=== PATIENT | female | born 1950 | race Caucasian/White ===

== ENCOUNTER 2022-01-29 22:24 | Inpatient (IN) ==
[2022-01-29] MEDS ORDERED: IOPAMIDOL 100 ML BOTTLE IV ONE (22:25)
--- NOTE | 2022-01-29 22:34 | Emergency Department Note ---
HPI General Chief complaint: Cold/Flu Symptoms Stated complaint: cold/flu symptoms Time Seen by Provider: 01/29/22 22:34 Source: EMS Mode of arrival: EMS Limitations: no limitations History of Present Illness HPI Narrative: Narrative:71-year-old female history of schizophrenia, type 2 diabetes, hyperlipidemia, hypothyroid presents to ED with 1 day of fever and several days of progressive worsening cough. Mild dyspnea. No chest pain. Has had COVID vaccinations. No abdominal pain or GI symptoms. Does occasionally hear voices she says but that is chronic and her baseline according to family. No other acute complaints. Denies chronic lung disease Related Data Home Medications Medication Instructions Recorded Confirmed quetiapine 100 mg tablet 200 mg PO HS 09/23/15 09/23/15 s-adenosylmethionine 200 mg tablet 200 mg PO DAILY 09/23/15 09/23/15 (Carmelo-E) Geodon 160 mg PO 09/05/20 aspirin 81 mg chewable tablet 81 mg PO DAILY 09/05/20 09/05/20 calcium carbonate 600 mg calcium PO 09/05/20 (1,500 mg) tablet (Calcium) clotrimazole 1 % topical cream TOPICAL 09/05/20 (Lotrimin AF (clotrimazole)) hydrocortisone 2.5 % topical cream 1 applic TOPICAL BID PRN 09/05/20 09/05/20 levothyroxine 88 mcg capsule 88 mcg PO DAILY 09/05/20 01/30/22 loperamide 2 mg tablet 2 mg PO PRN PRN 09/05/20 01/30/22 montelukast 10 mg tablet 10 mg PO DAILY 09/05/20 09/05/20 (Singulair) nitrofurantoin macrocrystal 100 mg 100 mg PO BID 09/05/20 09/05/20 capsule olanzapine 5 mg tablet 5 mg PO Q1HP PRN 09/05/20 01/30/22 trazodone 50 mg tablet 50 mg PO PRN PRN 09/05/20 09/05/20 divalproex 250 mg tablet,extended 1 tab PO QDAY 01/30/22 01/30/22 release 24 hr sertraline 50 mg tablet 1 tab PO QDAY 01/30/22 01/30/22 Previous Rx's Medication Instructions Recorded nitrofurantoin 100 mg PO BID #14 cap 02/15/21 monohydrate/macrocrystals 100 mg capsule (Macrobid) Allergies Allergy/AdvReac Type Severity Reaction Status Date / Time No Known Drug Allergies Allergy Verified 10/08/21 18:38 Review of Systems ROS ROS Narrative: Narrative:At least 10 systems reviewed and otherwise acutely negative except as in the HPI PFSH Narrative Patient History Narrative: Narrative: Medical/Surgical/Family History All Active Problems (Updated 01/30/22 @ 04:18 by Brandon Dowd DO) Suicidal ideation (Acute) Schizo affective schizophrenia (Acute) Chronic confusion (Acute) Asymptomatic microscopic hematuria (Acute) Acute UTI (Acute) Acute UTI (Acute) Contusion of hip (Acute) Pneumonia (Acute) Sepsis (Acute) Hypoxia (Acute) Chronic diarrhea (Acute) Hypertriglyceridemia (Acute) Hypothyroidism (Acute) Type 2 diabetes mellitus (Acute) Schizoaffective disorder (Acute) Gastroenteritis (Acute) Medical History (Updated 01/30/22 @ 04:18 by Brandon Dowd DO) Chronic diarrhea Gastroenteritis History of breast cancer Hypertriglyceridemia Hypothyroidism Schizoaffective disorder Type 2 diabetes mellitus Surgical History History of bilateral mastectomy Social History Smoking Status: Never smoker Exam Narrative Narrative: Narrative: Constitutional: normally developed, ill-appearing Head: Normocephalic, atraumatic, Eyes: No Icterus, ENT: Moist mucus membranes, Neck: Supple, Cardiac: Mildly tachycardic heart sounds, palpable radial pulses, no peripheral edema Pulmonary: A bit tachypneic mildly hypoxic on room air in the mid 80s, stable on 2 L nasal cannula coarse breath sounds sporadic crackle and cough Gastrointestinal: Abdomen soft, non-distended, non-tender, Musculoskeletal: No gross deformities, well perfused Skin: warm, dry Neuro: Alert and oriented. General Limitations: no limitations Course Vital Signs Vital signs: Vital Signs Temperature 38.1 C H 01/29/22 22:25 Pulse Rate 114 H 01/29/22 22:25 Respiratory Rate 28 H 01/29/22 22:25 Blood Pressure 156/69 01/29/22 22:25 Pulse Oximetry (%) 91 01/29/22 22:25 Temperature 37.0 C 01/30/22 03:18 Pulse Rate 72 01/30/22 04:01 Respiratory Rate 17 01/30/22 03:18 Blood Pressure 112/54 01/30/22 04:01 Pulse Oximetry (%) 97 01/30/22 04:01 [facility] MDM Narrative Medical decision making narrative: Narrative: Patient with fever, cough she is febrile mildly tachycardic and hypoxic requiring oxygen septic work-up initiated is started on Rocephin azithromycin. Her rapid Covid and flu are negative we will send panther as suspicion is still high Twelve-lead EKG sinus tachycardia 102 [place], QRS, QTc within normal, and some nonspecific T wave flattening no ST segment changes CBC White count of 18.7 Lactic acid 2.6, electrolytes with a mild hypokalemia 3.0 Given the elevated lactic acid we have ordered additional fluids to complete 30 cc/kg bolus and will repeat lactic. Patient has already received antibiotics Reevaluation is feeling better vital signs stable White count 18.7, initial lactic acid 2.6 Electrolytes mild hypokalemia will replenish and mild hyperglycemia procal normal Chest x-ray per my interpretation some possible mild patchy opacities CT PE is negative for PE, per direct radiology she does have some mild diffuse hazy groundglass opacities possibly congestive changes however given the overall clinical picture I think this is more likely consistent with a viral pneumonia/possible COVID-19 [id number] Reevaluation vitals are stable repeat lactic acid is pending Has received antibiotics and 30 cc/kg fluids, well perfused. Also sent off a viral panel Have spoken with the hospitalist who accepts admission who did also request a single dose of dexamethasone at this time which was ordered and patient is admitted at this time Lab Data Result diagrams: 01/29/22 23:00 01/29/22 23:00 Labs: Lab Results 01/29/22 01/29/22 01/29/22 Range/Units 23:00 23:00 23:00 WBC 18.7 H (4.5-11.0) K/mcL RBC 4.25 (3.59-5.38) M/mcL Hgb 12.5 (11.2-15.7) g/dL Hct 39.0 (34.1-44.9) % MCV 91.8 (80.0-100.0) fL MCH 29.4 (26.0-34.0) pg MCHC 32.1 (31.0-36.0) g/dL RDW 15.2 H (11.5-14.5) % Plt Count 227 (140-440) K/mcL MPV 9.8 (7.4-10.4) fL Neut % (Auto) 75.8 (38.0-78.0) % Lymph % (Auto) 7.2 L (15.5-49.0) % [place] % (Auto) 16.5 H (1.0-12.0) % Eos % (Auto) 0.3 (0.0-7.0) % Baso % (Auto) 0.2 (0.0-2.0) % Lymph # (Auto) 1.34 L (1.50-4.80) K/mcL [place] # (Auto) 3.09 H (0.10-0.90) K/mcL Eos # (Auto) 0.06 (0.00-0.70) K/mcL Baso # (Auto) 0.04 (0.00-0.30) K/mcL Absolute Neutrophils 14.17 H (1.80-8.00) K/mcL VBG Lactic Acid 2.6 H (0.5-2.0) mmol/L Sodium 142 (133-145) mmol/L Potassium 3.0 L (3.3-5.1) mmol/L Chloride 105 (96-108) mmol/L Carbon Dioxide 26 (22-30) mmol/L Anion Gap 11.0 (8.0-16.0) BUN 12 (8-23) mg/dL Creatinine 0.7 (0.6-1.1) mg/dL GFR Calculation 87 Glucose 205 H (70-105) mg/dL Calcium 8.9 (8.6-10.4) mg/dL Total Bilirubin 0.2 (0.1-1.0) mg/dL AST 20 (<32) U/L ALT 9 (<40) U/L Alkaline Phosphatase 57 (39-117) U/L Total Protein 7.2 (5.9-8.4) gm/dL Albumin 3.2 (3.2-5.2) gm/dL Globulin 4.0 H (2.2-3.7) gm/dL Albumin/Globulin Ratio 0.8 L (1.0-2.3) Procalcitonin 0.07 (<0.10) ng/mL ED POC Tests ED POC Tests: MADDISON - Influenza A Negative M[place]DISON - Influenza B Negative [place] - SARS Antigen Negative Discharge Plan Patient/Caregiver Discharge Instructions Pt seen by [employer]/PA only: No Clinical Impression: Pneumonia, Sepsis, Hypoxia Patient Disposition: Xfer As Inpt ([facility]) Condition: Serious Discharge Date/Time: 01/30/22 04:07
[2022-01-29] MEDS ORDERED: IPRATROPIUM/ALBUTEROL 3 ML AMPUL.NEB NEB ONE (22:49)
[2022-01-29] MEDS ORDERED: AZITHROMYCIN 500 MG in DEXTROSE 5% IN WATER 250 ML IV ONE (22:49)
[2022-01-29] MEDS ORDERED: ACETAMINOPHEN 325 MG TABLET PO ONE (22:50)
[2022-01-29] MEDS: LACTATED RINGERS 2,100 ML IV ONE (22:58)
[2022-01-29] MEDS ORDERED: cefTRIAXone 1 GM in DEXTROSE 5% IN WATER 50 ML IV SCH (23:00)
[2022-01-29] MEDS: LACTATED RINGERS 1,000 ML IV ONE (23:05)
[2022-01-30 00:21] LABS: Basophils # (Auto) 0.04 K/mcL (0.00-0.30); Basophils % (Auto) 0.2 % (0.0-2.0); Eosinophils # (Auto) 0.06 K/mcL (0.00-0.70); Eosinophils % (Auto) 0.3 % (0.0-7.0); Hemoglobin 12.5 g/dL (11.2-15.7); Lymphocytes # (Auto) 1.34 K/mcL (1.50-4.80); Lymphocytes % (Auto) 7.2 % (15.5-49.0); Mean Cell Volume 91.8 fL (80.0-100.0); Mean Corpuscular HGB Conc 32.1 g/dL (31.0-36.0); Mean Platelet Volume 9.8 fL (7.4-10.4); Monocytes # (Auto) 3.09 K/mcL (0.10-0.90); Monocytes % (Auto) 16.5 % (1.0-12.0); Neutrophils % (Auto) 75.8 % (38.0-78.0); Platelet Count 227 K/mcL (140-440); RBC 4.25 M/mcL (3.59-5.38); Red Cell Distribution Width 15.2 % (11.5-14.5); WBC 18.7 K/mcL (4.5-11.0)
[2022-01-30 00:29] LABS: ALT/SGPT 9 U/L (<40); AST/SGOT 20 U/L (<32); Albumin 3.2 gm/dL (3.2-5.2); Albumin/Globulin Ratio 0.8 (1.0-2.3); Alkaline Phosphatase 57 U/L (39-117); Bilirubin,Total 0.2 mg/dL (0.1-1.0); Blood Urea Nitrogen 12 mg/dL (8-23); Calcium 8.9 mg/dL (8.6-10.4); Carbon Dioxide 26 mmol/L (22-30); Chloride 105 mmol/L (96-108); Glomerular Filtration Rate 87; Glucose 205 mg/dL (70-105)
[2022-01-30] MEDS ORDERED: POTASSIUM CHLORIDE 20 MEQ TABLET PO ONE (00:37)
[2022-01-30] MEDS: LACTATED RINGERS 2,100 ML IV ONE (01:38)
[2022-01-30] MEDS: LACTATED RINGERS 1,000 ML IV ONE (03:18)
[2022-01-30] MEDS ORDERED: ONDANSETRON 4 MG/2 ML VIAL IV PRN ×2 (03:30→11:57)
[2022-01-30] MEDS ORDERED: DEXAMETHASONE 10 MG/ML VIAL IV ONE (03:30)
[2022-01-30] MEDS ORDERED: ACETAMINOPHEN 325 MG TABLET PO PRN (03:30)
[2022-01-30] MEDS: 0.9 % SODIUM CHLORIDE 1,000 ML IV SCH ×2 (05:05→05:07)
--- NOTE | 2022-01-30 07:57 | XRay Report ---
HISTORY: Cough, short of breath, fever with flu symptoms FINDINGS: Prominent nonspecific interstitial lung markings are present bilaterally. This is most apparent centrally in the right lung. Right diaphragm is slightly elevated. There is no lobar consolidation. No mass or pleural effusion are present. The heart size is normal. No adenopathy is detected. There is no prior study for comparison. A clip is noted in the right axilla. IMPRESSION: Prominent interstitial lung markings which could be due to pulmonary vascular congestion, inflammation or fibrosis. Interpreted and Authenticated by: Zeyad Mckeon 01/30/22
--- NOTE | 2022-01-30 08:04 | Internal Med History&Physical ---
HPI History of Present Illness Patient information: Note initiated : 01/30/22 at 7:55 am Service Date, if different from initiated Date: [] Patient: Ange Caballero 71 y/o F admitted on 01/30/22 for cold/flu symptoms. Chief Complaint: [] History of present illness: Patient patient is poor historian most history obtained from chart Presented to the hospital with fever progressing mild productive cough mild shortness of breath and fever. And mild dyspnea. Occasional nausea. Patient has had vaccinations. Rapid Covid and flu were negative patient clinic presented like Covid so still is high suspicion versus bacterial pneumonia. Review of Systems: Pertinent positives above. Denies headache/chills/vomiting/chest or abdominal pain/diarrhea. Remaining 10 point review of system reviewed negative PFSH PFSH All Active Problems (Updated 01/30/22 @ 04:18 by Brandon Dowd DO) Suicidal ideation (Acute) Schizo affective schizophrenia (Acute) Chronic confusion (Acute) Asymptomatic microscopic hematuria (Acute) Acute UTI (Acute) Acute UTI (Acute) Contusion of hip (Acute) Pneumonia (Acute) Sepsis (Acute) Hypoxia (Acute) Chronic diarrhea (Acute) Hypertriglyceridemia (Acute) Hypothyroidism (Acute) Type 2 diabetes mellitus (Acute) Schizoaffective disorder (Acute) Gastroenteritis (Acute) Medical History (Updated 01/30/22 @ 04:18 by Brandon Dowd DO) Chronic diarrhea Gastroenteritis History of breast cancer Hypertriglyceridemia Hypothyroidism Schizoaffective disorder Type 2 diabetes mellitus Surgical History History of bilateral mastectomy MEDS/ALLERGIES Home Medications and Allergies Home Medications Medication Instructions Recorded Confirmed Type quetiapine 100 mg tablet 200 mg PO HS 09/23/15 09/23/15 History s-adenosylmethionine 200 mg tablet 200 mg PO DAILY 09/23/15 09/23/15 History (Carmelo-E) Geodon 160 mg PO 09/05/20 History aspirin 81 mg chewable tablet 81 mg PO DAILY 09/05/20 09/05/20 History calcium carbonate 600 mg calcium PO 09/05/20 History (1,500 mg) tablet (Calcium) clotrimazole 1 % topical cream TOPICAL 09/05/20 History (Lotrimin AF (clotrimazole)) hydrocortisone 2.5 % topical cream 1 applic TOPICAL BID PRN 09/05/20 09/05/20 History levothyroxine 88 mcg capsule 88 mcg PO DAILY 09/05/20 01/30/22 History loperamide 2 mg tablet 2 mg PO PRN PRN 09/05/20 01/30/22 History montelukast 10 mg tablet 10 mg PO DAILY 09/05/20 09/05/20 History (Singulair) nitrofurantoin macrocrystal 100 mg 100 mg PO BID 09/05/20 09/05/20 History capsule olanzapine 5 mg tablet 5 mg PO Q1HP PRN 09/05/20 01/30/22 History trazodone 50 mg tablet 50 mg PO PRN PRN 09/05/20 09/05/20 History nitrofurantoin 100 mg PO BID #14 cap 01/14/21 Rx monohydrate/macrocrystals 100 mg capsule (Macrobid) divalproex 250 mg tablet,extended 1 tab PO QDAY 01/30/22 01/30/22 History release 24 hr sertraline 50 mg tablet 1 tab PO QDAY 01/30/22 01/30/22 History Allergies Allergy/AdvReac Type Severity Reaction Status Date / Time No Known Drug Allergies Allergy Verified 10/08/21 18:38 EXAM Constitutional Vitals: Temp Pulse Resp BP Pulse Ox 98.4 F 76 20 118/54 96 01/30/22 07:35 01/30/22 07:35 01/30/22 07:35 01/30/22 07:35 01/30/22 07:35 Exam: General: Awake, No acute Distress Eyes/N/T: EOMI, PERRL, dry MM Head/Neck: neck supple, normocephalic atraumatic CV: RRR, No murmurs, normal s1/s2 Pulm: Mild rales/rhonchi b/l, no wheezing Abd: soft, nontender, +BS x4 Ext: no clubbing/cyanosis/edema Neuro: Drowsy but awakens, no focal deficits, moves all extremities, CN 2-12 grossly intact, symmetrical strength b/l upper/lower, sensations intact b/l upper/lower Skin: warm/dry DATA Data Completed and Pending Labs: Labs from last 24 hours 01/30/22 01/29/22 01/29/22 03:50 23:00 23:00 WBC RBC Hgb Hct MCV MCH MCHC RDW Plt Count MPV Neut % (Auto) Lymph % (Auto) [place] % (Auto) Eos % (Auto) Baso % (Auto) Lymph # (Auto) [place] # (Auto) Eos # (Auto) Baso # (Auto) Absolute Neutrophils VBG Lactic Acid 2.1 H 2.6 H Sodium 142 Potassium 3.0 L Chloride 105 Carbon Dioxide 26 Anion Gap 11.0 BUN 12 Creatinine 0.7 GFR Calculation 87 Glucose 205 H Calcium 8.9 Total Bilirubin 0.2 AST 20 ALT 9 Alkaline Phosphatase 57 Total Protein 7.2 Albumin 3.2 Globulin 4.0 H Albumin/Globulin Ratio 0.8 L Procalcitonin 0.07 01/29/22 23:00 WBC 18.7 H RBC 4.25 Hgb 12.5 Hct 39.0 MCV 91.8 MCH 29.4 MCHC 32.1 RDW 15.2 H Plt Count 227 MPV 9.8 Neut % (Auto) 75.8 Lymph % (Auto) 7.2 L [place] % (Auto) 16.5 H Eos % (Auto) 0.3 Baso % (Auto) 0.2 Lymph # (Auto) 1.34 L [place] # (Auto) 3.09 H Eos # (Auto) 0.06 Baso # (Auto) 0.04 Absolute Neutrophils 14.17 H VBG Lactic Acid Sodium Potassium Chloride Carbon Dioxide Anion Gap BUN Creatinine GFR Calculation Glucose Calcium Total Bilirubin AST ALT Alkaline Phosphatase Total Protein Albumin Globulin Albumin/Globulin Ratio Procalcitonin A/P Narrative A/P Narrative: A: *Acute hypoxic respiratory failure: 2/2 viral vs bacterial PNA -on 2L NC *PNA: likely viral vs atypical bacterial -pct low *SIRS: 2/2 above -leukocytosis/fever/tachycardia/tachypnea *Hypokalemia: *Schizophrenia: *DM: A1c *Hypothyroidism: P: -empiric Abx, pending SC -covid/rvp2/myco pending -O2 wean -check bnp to eval Heart component -cont home psych -cont home asa -pt/ot -Home medication reconciliation -ppx: Lovenox Time Spent With Patient Time: Total time spent is greater than 50% in coordination of care (as documented) at patient's floor/unit and/or counseling patient: QUALITY VTE Deep Vein Thrombosis/Pulmonary Embolism Present on Admission: No
--- NOTE | 2022-01-30 08:06 | Cat Scan Report ---
History: Flu symptoms with shortness of breath and hypoxia TECHNIQUE: Following injection of intravenous nonionic contrast the chest was imaged during the pulmonary artery phase. Sagittal, coronal and axial MIPS images were created. The radiation exposure was limited using dose reduction technology. FINDINGS: The pulmonary arteries are normal with no intraluminal filling defects. Heart size is upper limits of normal. There is very little plaque formation in the coronary arteries. The aorta is normal in caliber and contains a small amount of plaque. There is mild consolidation in the posterior basal segment of the right lower lobe, at the costophrenic sulcus. This could be atelectasis or pneumonia. There are scattered areas of prominent increased interstitial lung markings and small scattered zones of groundglass alveolar opacification in both lungs. Several of the third bronchi in the right lower lobe are occluded with mucous. Trachea and mainstem bronchi are normal. There are a few small reactive lymph nodes in the mediastinum. No pleural effusion is present. Patient had prior bilateral mastectomies performed. There is a clip in the right axilla. There is no residual or recurrent chest wall mass. Bone windows show no lytic or blastic metastasis. 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 Incidentally noted is a cyst in the caudate lobe of the liver. IMPRESSION: No evidence pulmonary emboli Bronchitis and mild bilateral pneumonia No evidence of metastasis Interpreted and Authenticated by: Zeyad Mckeon 01/30/22
[2022-01-30] MEDS ORDERED: DEXTROSE 31 GM ORAL.SUSP PO PRN (08:37)
[2022-01-30] MEDS ORDERED: DEXTROSE 50% 50 ML VIAL IV PRN (08:37)
[2022-01-30 09:19] LABS: C-Reactive Protein 3.5 mg/dL (0.03-0.80)
[2022-01-30] MEDS: INSULIN LISPRO 1 UNIT/0.01 ML UNIT SQ SCH ×4 (10:18→20:34)
[2022-01-30 10:48] LABS: Anisocytosis 1+ (None Seen); Eosinophils % (Manual) 1 % (0-7); Lymphocytes % 18 % (15-49); Monocytes % (Manual) 15 % (1-12); Platelet Estimate NORMAL (Normal); RBC Morphology ABNORMAL (Normal); Segmented Neutrophils % 66 % (38-78)
[2022-01-30] MEDS ORDERED: FUROSEMIDE 40 MG/4 ML VIAL IV ONE (11:56)
[2022-01-30] MEDS ORDERED: POLYETHYLENE GLYCOL 3350 17 GM PACKET PO PRN (11:57)
[2022-01-30] MEDS ORDERED: POTASSIUM CHLORIDE 20 MEQ TABLET PO PRN ×2 (11:57)
[2022-01-30] MEDS ORDERED: POTASSIUM CHLORIDE 40 MEQ in DEXTROSE 5% IN WATER 500 ML IV PRN (11:57)
[2022-01-30] MEDS ORDERED: MAGNESIUM SULFATE 2 GM/50 ML BAG IV PRN (11:57)
[2022-01-30] MEDS ORDERED: SENNOSIDES 1 TABLET PO PRN (11:57)
[2022-01-30] MEDS ORDERED: IPRATROPIUM/ALBUTEROL 3 ML AMPUL.NEB NEB ONE (12:00)
[2022-01-30] MEDS: FAMOTIDINE 20 MG TABLET PO SCH ×2 (12:34→21:25)
[2022-01-30] MEDS: ENOXAPARIN 40 MG/0.4 ML SYRINGE SQ SCH (12:34)
[2022-01-30 13:45] LABS: Hemoglobin A1C 5.4 % Hgb (4.0-6.0)
[2022-01-30] MEDS ORDERED: cefTRIAXone 1 GM VIAL IV SCH ×2 (14:00)
[2022-01-30 14:08] LABS: Appearance,Urine CLEAR (Clear); Bilirubin,Urine Negative (Negative); Color,Urine YELLOW; Culture Indicated,Urine No; Glucose,Urine (UA) Negative (Negative); Ketones,Urine Negative (Negative); Leukocyte Esterase,Urine Negative /uL (Negative); Mucus,Urine FEW /hpf; Nitrate,Urine Negative (Negative); Protein,Urine Negative (Negative); Urine Blood 0.03 mg/dL (Negative); Urine RBC 11 /hpf (0-3); Urine Squamous Epithelial Cell 0 /hpf (0-4); Urine Transitional Epi Cells < 1 /hpf (0-2); Urine WBC 1 /hpf (0-4); Urobilinogen,Urine Negative
[2022-01-30] MEDS: cefTRIAXone 2 GM in DEXTROSE 5% IN WATER 50 ML IV SCH (14:37)
[2022-01-30] MEDS: 0.9 % SODIUM CHLORIDE 10 ML SYRINGE IV SCH ×3 (14:41→21:26)
[2022-01-30] MEDS: IPRATROPIUM/ALBUTEROL 3 ML AMPUL.NEB NEB PRN (17:45)
[2022-01-30] MEDS ORDERED: methylPREDNISolone SOD SUCC 125 MG/2 ML VIAL IV ONE (19:46)
[2022-01-30] MEDS ORDERED: methylPREDNISolone SOD SUCC 125 MG/2 ML VIAL ONE (19:57)
[2022-01-30] MEDS ORDERED: METOPROLOL TARTRATE 5 MG/5 ML VIAL IV ONE (20:25)
[2022-01-30] MEDS: DOCUSATE SODIUM 100 MG CAPSULE PO SCH (20:28)
[2022-01-30] MEDS ORDERED: cefTRIAXone 1 GM in DEXTROSE 5% IN WATER 50 ML IV SCH (21:00)
[2022-01-30] MEDS ORDERED: LORazepam 2 MG/ML VIAL IV PRN (21:03)
[2022-01-30] MEDS ORDERED: OLANZapine 5 MG TABLET PO PRN (21:03)
[2022-01-30] MEDS ORDERED: LORazepam 2 MG/ML VIAL ONE (21:23)
[2022-01-30] MEDS: AZITHROMYCIN 500 MG in DEXTROSE 5% IN WATER 250 ML IV SCH (21:25)
[2022-01-30] MEDS: SERTRALINE 50 MG TABLET PO SCH (21:42)
[2022-01-30] MEDS ORDERED: METOPROLOL TARTRATE 5 MG/5 ML VIAL IV PRN (22:23)
[2022-01-31] MEDS: IPRATROPIUM/ALBUTEROL 3 ML AMPUL.NEB NEB PRN (02:50)
[2022-01-31] MEDS: 0.9 % SODIUM CHLORIDE 10 ML SYRINGE IV SCH ×3 (04:54→20:55)
[2022-01-31] MEDS: DIVALPROEX SODIUM 250 MG TABLET PO SCH ×2 (06:16→09:02)
[2022-01-31 06:58] LABS: ALT/SGPT 7 U/L (<40); AST/SGOT 19 U/L (<32); Albumin 2.9 gm/dL (3.2-5.2); Albumin/Globulin Ratio 0.8 (1.0-2.3); Alkaline Phosphatase 54 U/L (39-117); Bilirubin,Direct < 0.2 mg/dL (0-0.3); Bilirubin,Total 0.4 mg/dL (0.1-1.0); Blood Urea Nitrogen 9 mg/dL (8-23); Calcium 8.9 mg/dL (8.6-10.4); Carbon Dioxide 28 mmol/L (22-30); Chloride 101 mmol/L (96-108); Globulin 3.6 gm/dL (2.2-3.7); Glomerular Filtration Rate 98; Glucose 159 mg/dL (70-105); Lactate Dehydrogenase 202 U/L (135-225); Phosphorous 2.9 mg/dL (2.5-4.5); Triglycerides 67 mg/dL (<150)
[2022-01-31] MEDS ORDERED: POTASSIUM CHLORIDE 20 MEQ TABLET PO ONE (08:00)
[2022-01-31] MEDS ORDERED: ALBUMIN HUMAN 12.5 GM/50 ML BAG IV ONE (08:01)
[2022-01-31] MEDS ORDERED: FUROSEMIDE 40 MG/4 ML VIAL IV ONE (08:01)
--- NOTE | 2022-01-31 08:06 | Internal Med Progress Note ---
SUBJECTIVE Subjective Patient information: Note initiated : 01/31/22 at 7:56 am Service Date, if different from initiated Date: [] Patient: Ange Caballero 71 y/o F admitted on 01/30/22 for cold/flu symptoms. Chief Complaint: [] Interval history: History of present illness: Patient patient is poor historian most history obtained from chart Presented to the hospital with fever progressing mild productive cough mild shortness of breath and fever. And mild dyspnea. Occasional nausea. Patient has had vaccinations. Rapid Covid and flu were negative patient clinic presented like Covid so still is high suspicion versus bacterial pneumonia. 3/4 Patient feeling better today. Does have shortness of breath but that some proving. Able to cough of phlegm now. Oxygen weaned down to 4 L of cannula. Leukocytosis likely worsen from steroid. no Bandemia. Review of Systems: denies headache/fever/chills/nausea/vomiting/chest or abdominal pain/diarrhea. Otherwise see above. Constitutional Vitals: Vital Signs Temp Pulse Resp BP Pulse Ox 98.9 F 67 16 102/50 95 01/31/22 04:01 01/31/22 06:00 01/31/22 06:00 01/31/22 06:00 01/31/22 06:49 Period Temp Pulse Resp BP Sys/[place] Pulse Ox Last 24 Hr 97.4 F-101.3 F 67-120 16-43 98-166/50-88 75-100 Intake and Output 01/30/22 01/31/22 01/31/22 21:59 05:59 13:59 Intake Total 50 250 Output Total 2225 1 500 Balance -2175 249 -500 Weight 70.715 kg Intake & Output: Intake & Output 01/30/22 01/31/22 01/31/22 21:59 05:59 13:59 Intake Total 50 250 Output Total 2225 1 500 Balance -2175 249 -500 Weight 70.715 kg Intake: IV 50 250 Zithromax 500 mg In Dextrose 5% 250 in Water 250 ml @ 250 mls/hr IV Q24H [facility] Rx#:[id number] Rocephin 2 gm In Dextrose 5% in 50 Water 50 ml @ 100 mls/hr IV Q24H [facility]ILIA Rx#:[id number] Output: Void Amount 2225 500 # of times incontinent of urine 1 Other: Urine Appearance Clear Urine Color Dark Yellow Dark Yellow Urine Odor Normal Stool Size Moderate Small Stool Color Brown Brown Stool Consistency Soft Soft Formed # Bowel Movements 1 Exam: General: Awake, No acute Distress Eyes/N/T: EOMI, Head/Neck: neck supple, CV: RRR, No murmurs, Pulm: Mild rales/rhonchi b/l, no wheezing Abd: soft, nontender, +BS x4 Ext: no clubbing/cyanosis/edema Neuro: Alert, no focal deficits, moves all extremities, Skin: warm/dry OBJ DATA Labs CBC & Chem 7: 01/31/22 05:16 01/31/22 05:16 Labs: Abnormal Lab Results 01/31/22 01/30/22 01/30/22 05:16 12:55 08:20 WBC RDW Lymph % (Auto) [place] % (Auto) Lymph # (Auto) [place] # (Auto) Monocytes % (Manual) Absolute Neutrophils RBC Morphology Anisocytosis VBG Lactic Acid Potassium 3.2 L Creatinine 0.5 L Glucose 159 H C-Reactive Protein 10.20 H 3.50 H NT-Pro-B Natriuret Pep 1798.0 H Albumin 2.9 L Globulin Albumin/Globulin Ratio 0.8 L Urine RBC 11 H Urine Mucus Few A 01/30/22 01/30/22 01/29/22 08:20 03:50 23:00 WBC RDW Lymph % (Auto) [place] % (Auto) Lymph # (Auto) [place] # (Auto) Monocytes % (Manual) 15 H Absolute Neutrophils RBC Morphology Abnormal A Anisocytosis 1+ A VBG Lactic Acid 2.1 H 2.6 H Potassium 3.0 L Creatinine Glucose 205 H C-Reactive Protein NT-Pro-B Natriuret Pep Albumin Globulin 4.0 H Albumin/Globulin Ratio 0.8 L Urine RBC Urine Mucus 01/29/22 23:00 WBC 18.7 H RDW 15.2 H Lymph % (Auto) 7.2 L [place] % (Auto) 16.5 H Lymph # (Auto) 1.34 L [place] # (Auto) 3.09 H Monocytes % (Manual) Absolute Neutrophils 14.17 H RBC Morphology Anisocytosis VBG Lactic Acid Potassium Creatinine Glucose C-Reactive Protein NT-Pro-B Natriuret Pep Albumin Globulin Albumin/Globulin Ratio Urine RBC Urine Mucus Meds: Medications Acetaminophen (Acetaminophen 325 Mg Tablet) 650 mg PO Q6HP PRN; Protocol PRN Reason: Per Pain Protocol/Fever > 101 Last Admin: 01/30/22 21:25 Dose: 650 mg Documented by: Albuterol/Ipratropium (Ipratropium/Albuterol 3 Ml Ampul.Neb) 3 ml NEB Q4HP PRN PRN Reason: Shortness Of Breath Last Admin: 01/31/22 02:50 Dose: 3 ml Documented by: Dextrose (Dextrose 50% 50 Ml Vial) 0 ml IV UD PRN PRN Reason: Hypoglycemia Diagnostic Test (Pha) (Accu-Chek 1 Each Strip) 1 each FS [facility] Last Admin: 01/30/22 20:29 Dose: 1 each Documented by: Divalproex Sodium (Divalproex Sodium 250 Mg Tablet) 250 mg PO QDAY [facility] Last Admin: 01/31/22 06:16 Dose: Not Given Documented by: Docusate Sodium (Docusate Sodium 100 Mg Capsule) 100 mg PO BID [facility] Last Admin: 01/30/22 20:28 Dose: Not Given Documented by: Enoxaparin Sodium (Enoxaparin 40 Mg/0.4 Ml Syringe) 40 mg SQ DAILY [facility] Last Admin: 01/30/22 12:34 Dose: 40 mg Documented by: Famotidine (Famotidine 20 Mg Tablet) 20 mg PO BID [facility] Last Admin: 01/30/22 21:25 Dose: 20 mg Documented by: Glucose (Dextrose 31 Gm Oral.Susp) 15 gm PO PRN PRN PRN Reason: Hypoglycemia Azithromycin 500 mg/ Dextrose 250 mls @ 250 mls/hr IV Q24H [facility] Stop: 02/02/22 21:59 Last Infusion: 01/30/22 23:07 Dose: Infused Documented by: Ceftriaxone Sodium 2 gm/ (Dextrose) 50 mls @ 100 mls/hr IV Q24H [facility] Last Infusion: 01/30/22 15:15 Dose: Infused Documented by: Potassium Chloride 40 meq/ (Dextrose) 520 mls @ 130 mls/hr IV UD PRN PRN Reason: Potassium < 3 Magnesium Sulfate (Magnesium Sulfate) 2 gm in 50 mls @ 50 mls/hr IV UD PRN PRN Reason: Magnesium </= 1.6 Insulin Human Lispro (Insulin Lispro 1 Unit/0.01 Ml Unit) 0 unit SQ [facility]; Protocol Last Admin: 01/30/22 20:34 Dose: 6 units Documented by: Lorazepam (Lorazepam 2 Mg/Ml Vial) 0.5 mg IV Q4-6HP PRN PRN Reason: Anxiety/Sedation/agitation Last Admin: 01/30/22 21:24 Dose: 0.5 mg Documented by: Metoprolol Tartrate (Metoprolol Tartrate 5 Mg/5 Ml Vial) 5 mg IV Q2H PRN PRN Reason: Tachyarrhythmias Olanzapine (Olanzapine 5 Mg Tablet) 5 mg PO BIDP PRN PRN Reason: Anxiety Ondansetron HCl (Ondansetron 4 Mg/2 Ml Vial) 4 mg IV Q4HP PRN PRN Reason: Nausea And Vomiting Polyethylene Glycol (Polyethylene Glycol 3350 17 Gm Packet) 17 gm PO DAILYP PRN PRN Reason: Constipation Potassium Chloride (Potassium Chloride 20 Meq Tablet) 40 meq PO UD PRN PRN Reason: Potssium is 3-3.5 Potassium Chloride (Potassium Chloride 20 Meq Tablet) 40 meq PO UD PRN PRN Reason: Potassium < 3 Prednisone (Prednisone 20 Mg Tablet) [facility] Senna (Sennosides 1 Tablet) 2 tab PO DAILYP PRN PRN Reason: Constipation Sertraline HCl (Sertraline 50 Mg Tablet) 50 mg PO QDAY [facility] Last Admin: 01/30/22 21:42 Dose: 50 mg Documented by: Sodium Chloride (0.9 % Sodium Chloride 10 Ml Syringe) 10 ml IV Q8 [facility] Last Admin: 01/31/22 04:54 Dose: 10 ml Documented by: A/P Narrative A/P Narrative: A: *Acute hypoxic respiratory failure: 2/2 viral vs bacterial PNA -on 4L NC *PNA w/ARDS: likely viral vs atypical bacterial +?acute on chronic bronchitis -strep/covid/rvp neg *SIRS: 2/2 above -leukocytosis/fever/tachycardia/tachypnea. improving *Hypokalemia: *Schizophrenia: admissions in past for psychosis *DM: A1c 5.4 *Hypothyroidism: P: -empiric Abx, pending [place] -short course steroids for bronchitis/wheezing/elevated crp -nebs -myco pending -O2 wean as able -cont home psych -cont home asa -pt/ot -Home medication reconciliation -ppx: Lovenox Time Spent With Patient Time: Total time spent is greater than 50% in coordination of care (as documented) at patient's floor/unit and/or counseling patient: QUALITY VTE Deep Vein Thrombosis/Pulmonary Embolism Present on Admission: No
--- NOTE | 2022-01-31 08:24 | XRay Report ---
HISTORY: Bronchitis and pneumonia FINDINGS: There are mild streaky infiltrates throughout both lungs with the greatest consolidation in the basilar segments. These have become worse bilaterally since 02-18. The heart size is normal. No adenopathy is detected. There is mild blunting of the costophrenic sulci which could be tiny pleural effusions or consolidated lung parenchyma. IMPRESSION: Mild but worsening bilateral pneumonia Interpreted and Authenticated by: Zeyad Mckeon 01/31/22
[2022-01-31] MEDS: INSULIN LISPRO 1 UNIT/0.01 ML UNIT SQ SCH ×4 (08:27→20:27)
[2022-01-31] MEDS: predniSONE 20 MG TABLET PO SCH (09:01)
[2022-01-31] MEDS: DOCUSATE SODIUM 100 MG CAPSULE PO SCH ×2 (09:02→20:11)
[2022-01-31] MEDS: SERTRALINE 50 MG TABLET PO SCH (09:02)
[2022-01-31] MEDS: FAMOTIDINE 20 MG TABLET PO SCH ×2 (09:02→20:54)
[2022-01-31] MEDS: ENOXAPARIN 40 MG/0.4 ML SYRINGE SQ SCH (09:02)
[2022-01-31] MEDS: IPRATROPIUM/ALBUTEROL 3 ML AMPUL.NEB NEB SCH ×2 (09:15→15:40)
[2022-01-31] MEDS: cefTRIAXone 2 GM in DEXTROSE 5% IN WATER 50 ML IV SCH (09:46)
[2022-01-31 09:53] LABS: Anisocytosis 1+ (None Seen); Band Neutrophils % 7 % (0-10); Lymphocytes % 6 % (15-49); Monocytes % (Manual) 6 % (1-12); Platelet Estimate NORMAL (Normal); Polychromasia FEW (None Seen); RBC Morphology ABNORMAL (Normal); Segmented Neutrophils % 81 % (38-78)
[2022-01-31 10:24] LABS: Hematocrit 36.6 % (34.1-44.9); Hemoglobin 12.2 g/dL (11.2-15.7); Mean Cell Volume 90.4 fL (80.0-100.0); Mean Corpuscular HGB Conc 33.3 g/dL (31.0-36.0); Mean Platelet Volume 10.5 fL (7.4-10.4); Platelet Count 175 K/mcL (140-440); RBC 4.05 M/mcL (3.59-5.38); Red Cell Distribution Width 15.2 % (11.5-14.5); WBC 29.9 K/mcL (4.5-11.0)
[2022-01-31] MEDS ORDERED: guaiFENesin 600 MG TAB.SR.12H PO ONE (12:30)
[2022-01-31] MEDS: LOPERAMIDE 2 MG CAPSULE PO PRN ×2 (13:06→14:25)
[2022-01-31] MEDS: guaiFENesin 600 MG TAB.SR.12H PO SCH (20:53)
[2022-01-31] MEDS: AZITHROMYCIN 500 MG in DEXTROSE 5% IN WATER 250 ML IV SCH (20:55)
[2022-02-01] MEDS: IPRATROPIUM/ALBUTEROL 3 ML AMPUL.NEB NEB SCH ×2 (00:07→07:08)
[2022-02-01] MEDS: 0.9 % SODIUM CHLORIDE 10 ML SYRINGE IV SCH ×4 (05:45→22:07)
[2022-02-01 06:57] LABS: Basophils # (Auto) 0.03 K/mcL (0.00-0.30); Basophils % (Auto) 0.2 % (0.0-2.0); Eosinophils # (Auto) 0.01 K/mcL (0.00-0.70); Eosinophils % (Auto) 0.1 % (0.0-7.0); Hematocrit 34.6 % (34.1-44.9); Hemoglobin 11.4 g/dL (11.2-15.7); Lymphocytes # (Auto) 3.26 K/mcL (1.50-4.80); Lymphocytes % (Auto) 16.7 % (15.5-49.0); Mean Cell Volume 90.3 fL (80.0-100.0); Mean Corpuscular HGB Conc 32.9 g/dL (31.0-36.0); Mean Platelet Volume 10.3 fL (7.4-10.4); Monocytes # (Auto) 3.17 K/mcL (0.10-0.90); Monocytes % (Auto) 16.3 % (1.0-12.0); Neutrophils % (Auto) 66.7 % (38.0-78.0); Platelet Count 206 K/mcL (140-440); RBC 3.83 M/mcL (3.59-5.38); Red Cell Distribution Width 15.2 % (11.5-14.5); WBC 19.5 K/mcL (4.5-11.0)
[2022-02-01 07:20] LABS: Blood Urea Nitrogen 21 mg/dL (8-23); Calcium 9.3 mg/dL (8.6-10.4); Carbon Dioxide 31 mmol/L (22-30); Chloride 103 mmol/L (96-108); Glomerular Filtration Rate 98; Glucose 98 mg/dL (70-105)
[2022-02-01] MEDS: INSULIN LISPRO 1 UNIT/0.01 ML UNIT SQ SCH ×4 (08:18→22:21)
[2022-02-01] MEDS: DOCUSATE SODIUM 100 MG CAPSULE PO SCH ×2 (08:19→22:07)
--- NOTE | 2022-02-01 08:43 | Internal Med Progress Note ---
SUBJECTIVE Subjective Patient information: Note initiated : 02/01/22 at 8:42 am Service Date, if different from initiated Date: [] Patient: Ange Caballeor 71 y/o F admitted on 01/30/22 for cold/flu symptoms. Chief Complaint: [] Interval history: History of present illness: Patient patient is poor historian most history obtained from chart Presented to the hospital with fever progressing mild productive cough mild shortness of breath and fever. And mild dyspnea. Occasional nausea. Patient has had vaccinations. Rapid Covid and flu were negative patient clinic presented like Covid so still is high suspicion versus bacterial pneumonia. 3/4 Patient feeling better today. Does have shortness of breath but that some proving. Able to cough of phlegm now. Oxygen weaned down to 4 L of cannula. Leukocytosis likely worsen from steroid. no Bandemia. 3/5 Feeling much better today. Patient on room air. States throat a little bit sore but otherwise no other complaints and patient actually wants to go home. Review of Systems: denies headache/fever/chills/nausea/vomiting/chest or abdominal pain/diarrhea. Otherwise see above. Constitutional Vitals: Vital Signs Temp Pulse Resp BP Pulse Ox 98.1 F 69 22 113/50 91 02/01/22 08:01 02/01/22 08:12 02/01/22 08:12 02/01/22 08:01 02/01/22 08:12 Period Temp Pulse Resp BP Sys/[place]illo Pulse Ox Last 24 Hr 97.8 F-98.4 F 63-88 16-29 91-142/40-74 89-96 Intake and Output 01/31/22 02/01/22 02/01/22 21:59 05:59 13:59 Intake Total 720 370 Output Total 125 200 75 Balance 595 170 -75 Weight 70.398 kg Intake & Output: Intake & Output 01/31/22 02/01/22 02/01/22 21:59 05:59 13:59 Intake Total 720 370 Output Total 125 200 75 Balance 595 170 -75 Weight 70.398 kg Intake: IV 250 Zithromax 500 mg In Dextrose 5% 250 in Water 250 ml @ 250 mls/hr IV Q24H [facility] Rx#:[id number] Oral 720 120 Output: Void Amount 125 200 75 Other: Meal Dinner Percent of Meal Consumed 75% Urine Appearance Clear Clear Clear Urine Color Dark Yellow Dark Yellow Dark Yellow Urine Odor Normal Stool Size Small Stool Color Brown Stool Consistency Loose Exam: General: Awake, No acute Distress Eyes/N/T: EOMI, Head/Neck: neck supple, CV: RRR, No murmurs, Pulm: minimal rales/rhonchi b/l improved, no wheezing Abd: soft, nontender, +BS x4 Ext: no clubbing/cyanosis/edema Neuro: Alert, no focal deficits, moves all extremities, Skin: warm/dry OBJ DATA Labs CBC & Chem 7: 02/01/22 05:58 02/01/22 05:56 Labs: Abnormal Lab Results 02/01/22 02/01/22 01/31/22 05:58 05:56 05:16 WBC 19.5 H RDW 15.2 H MPV Lymph % (Auto) [place] % (Auto) 16.3 H Lymph # (Auto) [place] # (Auto) 3.17 H Seg Neutrophils % Lymphocytes % Monocytes % (Manual) Absolute Neutrophils 13.03 H RBC Morphology Polychromasia Anisocytosis VBG Lactic Acid Potassium 3.2 L Carbon Dioxide 31 H Creatinine 0.5 L 0.5 L Glucose 159 H C-Reactive Protein 8.30 H 10.20 H NT-Pro-B Natriuret Pep Albumin 2.9 L Globulin Albumin/Globulin Ratio 0.8 L Urine RBC Urine Mucus 01/31/22 01/30/22 01/30/22 05:16 12:55 08:20 WBC 29.9 H RDW 15.2 H MPV 10.5 H Lymph % (Auto) [place] % (Auto) Lymph # (Auto) [place] # (Auto) Seg Neutrophils % 81 H Lymphocytes % 6 L Monocytes % (Manual) Absolute Neutrophils RBC Morphology Abnormal A Polychromasia Few A Anisocytosis 1+ A VBG Lactic Acid Potassium Carbon Dioxide Creatinine Glucose C-Reactive Protein 3.50 H NT-Pro-B Natriuret Pep 1798.0 H Albumin Globulin Albumin/Globulin Ratio Urine RBC 11 H Urine Mucus Few A 01/30/22 01/30/22 01/29/22 08:20 03:50 23:00 WBC RDW MPV Lymph % (Auto) [place] % (Auto) Lymph # (Auto) [place] # (Auto) Seg Neutrophils % Lymphocytes % Monocytes % (Manual) 15 H Absolute Neutrophils RBC Morphology Abnormal A Polychromasia Anisocytosis 1+ A VBG Lactic Acid 2.1 H 2.6 H Potassium 3.0 L Carbon Dioxide Creatinine Glucose 205 H C-Reactive Protein NT-Pro-B Natriuret Pep Albumin Globulin 4.0 H Albumin/Globulin Ratio 0.8 L Urine RBC Urine Mucus 01/29/22 23:00 WBC 18.7 H RDW 15.2 H MPV Lymph % (Auto) 7.2 L [place] % (Auto) 16.5 H Lymph # (Auto) 1.34 L [place] # (Auto) 3.09 H Seg Neutrophils % Lymphocytes % Monocytes % (Manual) Absolute Neutrophils 14.17 H RBC Morphology Polychromasia Anisocytosis VBG Lactic Acid Potassium Carbon Dioxide Creatinine Glucose C-Reactive Protein NT-Pro-B Natriuret Pep Albumin Globulin Albumin/Globulin Ratio Urine RBC Urine Mucus Meds: Medications Acetaminophen (Acetaminophen 325 Mg Tablet) 650 mg PO Q6HP PRN; Protocol PRN Reason: Per Pain Protocol/Fever > 101 Last Admin: 01/30/22 21:25 Dose: 650 mg Documented by: Albuterol/Ipratropium (Ipratropium/Albuterol 3 Ml Ampul.Neb) 3 ml NEB Q4HP PRN PRN Reason: Shortness Of Breath Last Admin: 01/31/22 02:50 Dose: 3 ml Documented by: Dextrose (Dextrose 50% 50 Ml Vial) 0 ml IV UD PRN PRN Reason: Hypoglycemia Diagnostic Test (Pha) (Accu-Chek 1 Each Strip) 1 each FS ACHS [facility] Last Admin: 02/01/22 08:18 Dose: 1 each Documented by: Divalproex Sodium (Divalproex Sodium 250 Mg Tablet) 250 mg PO QDAY [facility] Last Admin: 01/31/22 09:02 Dose: 250 mg Documented by: Docusate Sodium (Docusate Sodium 100 Mg Capsule) 100 mg PO BID [facility] Last Admin: 02/01/22 08:19 Dose: Not Given Documented by: Enoxaparin Sodium (Enoxaparin 40 Mg/0.4 Ml Syringe) 40 mg SQ DAILY [facility] Last Admin: 01/31/22 09:02 Dose: 40 mg Documented by: Famotidine (Famotidine 20 Mg Tablet) 20 mg PO BID [facility] Last Admin: 01/31/22 20:54 Dose: 20 mg Documented by: Glucose (Dextrose 31 Gm Oral.Susp) 15 gm PO PRN PRN PRN Reason: Hypoglycemia Guaifenesin (Guaifenesin 600 Mg Tab.Sr.12h) 600 mg PO BID [facility] Last Admin: 01/31/22 20:53 Dose: 600 mg Documented by: Azithromycin 500 mg/ Dextrose 250 mls @ 250 mls/hr IV Q24H [facility] Stop: 02/02/22 21:59 Last Infusion: 01/31/22 23:04 Dose: Infused Documented by: Ceftriaxone Sodium 2 gm/ (Dextrose) 50 mls @ 100 mls/hr IV Q24H [facility] Last Infusion: 01/31/22 10:20 Dose: Infused Documented by: Potassium Chloride 40 meq/ (Dextrose) 520 mls @ 130 mls/hr IV UD PRN PRN Reason: Potassium < 3 Magnesium Sulfate (Magnesium Sulfate) 2 gm in 50 mls @ 50 mls/hr IV UD PRN PRN Reason: Magnesium </= 1.6 Insulin Human Lispro (Insulin Lispro 1 Unit/0.01 Ml Unit) 0 unit SQ [facility]; Protocol Last Admin: 02/01/22 08:18 Dose: Not Given Documented by: Loperamide HCl (Loperamide 2 Mg Capsule) 2 mg PO PRN PRN PRN Reason: Diarrhea Last Admin: 01/31/22 14:25 Dose: 2 mg Documented by: Lorazepam (Lorazepam 2 Mg/Ml Vial) 0.5 mg IV Q4-6HP PRN PRN Reason: Anxiety/Sedation/agitation Last Admin: 01/30/22 21:24 Dose: 0.5 mg Documented by: Metoprolol Tartrate (Metoprolol Tartrate 5 Mg/5 Ml Vial) 5 mg IV Q2H PRN PRN Reason: Tachyarrhythmias Olanzapine (Olanzapine 5 Mg Tablet) 5 mg PO BIDP PRN PRN Reason: Anxiety Ondansetron HCl (Ondansetron 4 Mg/2 Ml Vial) 4 mg IV Q4HP PRN PRN Reason: Nausea And Vomiting Polyethylene Glycol (Polyethylene Glycol 3350 17 Gm Packet) 17 gm PO DAILYP PRN PRN Reason: Constipation Potassium Chloride (Potassium Chloride 20 Meq Tablet) 40 meq PO UD PRN PRN Reason: Potssium is 3-3.5 Potassium Chloride (Potassium Chloride 20 Meq Tablet) 40 meq PO UD PRN PRN Reason: Potassium < 3 Prednisone (Prednisone 20 Mg Tablet) 40 mg PO [facility] Last Admin: 01/31/22 09:01 Dose: 40 mg Documented by: Senna (Sennosides 1 Tablet) 2 tab PO DAILYP PRN PRN Reason: Constipation Sertraline HCl (Sertraline 50 Mg Tablet) 50 mg PO QDAY [facility] Last Admin: 01/31/22 09:02 Dose: 50 mg Documented by: Sodium Chloride (0.9 % Sodium Chloride 10 Ml Syringe) 10 ml IV Q8 [facility] Last Admin: 02/01/22 05:45 Dose: 10 ml Documented by: A/P Narrative A/P Narrative: A: *Acute hypoxic respiratory failure: 2/2 viral vs bacterial PNA -now on room air *PNA w/ARDS: likely viral vs atypical bacterial +?acute on chronic bronchitis -strep/covid/rvp/SC neg *SIRS: 2/2 above -leukocytosis(increased with steroids but improvi ng))/fever/tachycardia/tachypnea. improving *Hypokalemia: *Schizophrenia: admissions in past for psychosis *DM: A1c 5.4 *Hypothyroidism: P: -empiric Abx, pending SC -short course steroids for bronchitis/wheezing/elevated crp -nebs -myco pending -O2 wean as able -cont home psych -cont home asa -pt/ot -ppx: Lovenox Time Spent With Patient Time: Total time spent is greater than 50% in coordination of care (as documented) at patient's floor/unit and/or counseling patient: QUALITY VTE Deep Vein Thrombosis/Pulmonary Embolism Present on Admission: No
[2022-02-01] MEDS ORDERED: LOPERAMIDE 2 MG CAPSULE PO PRN (08:52)
[2022-02-01] MEDS: LOPERAMIDE 2 MG CAPSULE PO PRN (09:09)
[2022-02-01] MEDS: MONTELUKAST 10 MG TABLET PO SCH (09:09)
[2022-02-01] MEDS: LEVOTHYROXINE 88 MCG TABLET PO SCH (09:09)
[2022-02-01] MEDS: SERTRALINE 50 MG TABLET PO SCH (09:09)
[2022-02-01] MEDS: guaiFENesin 600 MG TAB.SR.12H PO SCH ×2 (09:09→22:06)
[2022-02-01] MEDS: predniSONE 20 MG TABLET PO SCH (09:09)
[2022-02-01] MEDS: ASPIRIN 81 MG TAB.CHEW PO SCH (09:09)
[2022-02-01] MEDS: FAMOTIDINE 20 MG TABLET PO SCH ×2 (09:09→22:06)
[2022-02-01] MEDS: ENOXAPARIN 40 MG/0.4 ML SYRINGE SQ SCH (09:09)
[2022-02-01] MEDS: cefTRIAXone 2 GM in DEXTROSE 5% IN WATER 50 ML IV SCH (09:10)
[2022-02-01] MEDS: PALIPERIDONE 3 MG PO SCH (09:10)
[2022-02-01] MEDS ORDERED: DIVALPROEX SODIUM 250 MG TABLET PO ONE ×2 (09:40→21:00)
[2022-02-01] MEDS: BENZOCAINE/MENTHOL 1 LOZENGE PO PRN ×2 (11:48→13:39)
[2022-02-01] MEDS ORDERED: DEXTROSE 50% 50 ML SYRINGE IV PRN (15:00)
[2022-02-01] MEDS ORDERED: OLANZapine 5 MG TABLET PO SCH ×2 (21:00)
[2022-02-01] MEDS ORDERED: DIVALPROEX SODIUM 250 MG TABLET PO SCH (21:00)
[2022-02-01] MEDS: AZITHROMYCIN 500 MG in DEXTROSE 5% IN WATER 250 ML IV SCH (22:06)
[2022-02-02] MEDS: BENZOCAINE/MENTHOL 1 LOZENGE PO PRN ×2 (01:28→09:42)
[2022-02-02] MEDS: 0.9 % SODIUM CHLORIDE 10 ML SYRINGE IV SCH (04:24)
[2022-02-02] MEDS: INSULIN LISPRO 1 UNIT/0.01 ML UNIT SQ SCH ×2 (07:31→11:49)
[2022-02-02] MEDS: DOCUSATE SODIUM 100 MG CAPSULE PO SCH (07:49)
[2022-02-02] MEDS: PALIPERIDONE 3 MG PO SCH (07:49)
[2022-02-02] MEDS: SERTRALINE 50 MG TABLET PO SCH (07:53)
[2022-02-02] MEDS: ENOXAPARIN 40 MG/0.4 ML SYRINGE SQ SCH (07:53)
[2022-02-02] MEDS: predniSONE 20 MG TABLET PO SCH (07:53)
[2022-02-02] MEDS: MONTELUKAST 10 MG TABLET PO SCH (07:54)
[2022-02-02] MEDS: guaiFENesin 600 MG TAB.SR.12H PO SCH (07:54)
[2022-02-02] MEDS: FAMOTIDINE 20 MG TABLET PO SCH (07:54)
[2022-02-02] MEDS: ASPIRIN 81 MG TAB.CHEW PO SCH (07:54)
[2022-02-02] MEDS: LEVOTHYROXINE 88 MCG TABLET PO SCH (07:54)
--- NOTE | 2022-02-02 07:55 | Discharge Summary ---
Discharge Provider Provider Patient information: Note initiated : 02/02/22 at 7:54 am Service Date, if different from initiated Date: [] Patient: Ange Caballero 71 y/o F admitted on 01/30/22 for cold/flu symptoms. Chief Complaint: [] Date of admission: 01/30/22 04:07 Discharge date: 02/02/22 Primary care physician: Page Franco Consults: 01/30/22 Consult to Physician [CONS] Stat Comment: Consulting Provider: Cholo Wright Reason For Exam: Physician to Consult Discharge Meds Discharge Medications Home Medications aspirin 81 mg chewable tablet 81 mg PO DAILY 09/05/20 [History Confirmed 03/21 Last Taken Unknown] levothyroxine 88 mcg capsule 88 mcg PO DAILY 09/05/20 [History Confirmed 01/31/22 Last Taken Unknown] montelukast 10 mg tablet (Singulair) 10 mg PO QAM 09/05/20 [History Confirmed 02/01/22 Last Taken Unknown] divalproex 250 mg tablet,extended release 24 hr 1 tab PO QHS 01/30/22 [History Confirmed 01/31/22 Last Taken Unknown] sertraline 50 mg tablet 1 tab PO QAM 01/30/22 [History Confirmed 02/01/22 Last Taken Unknown] divalproex 500 mg tablet,extended release 24 hr 500 mg PO QHS 01/31/22 [History Confirmed 01/31/22 Last Taken Unknown] calcium carbonate 600 mg-vitamin D3 5 mcg (200 unit) tablet 1 tab PO QHS 02/01/22 [History Confirmed 02/01/22 Last Taken Unknown] fenofibrate nanocrystallized 145 mg tablet 1 tab PO QDAY 02/01/22 [History Confirmed 02/01/22 Last Taken Unknown] fexofenadine 180 mg tablet (Allergy Relief (fexofenadine)) 180 tab PO HS 02/01/22 [History Confirmed 02/01/22 Last Taken Unknown] ketoconazole 2 % shampoo See Rx Instructions .ROUTE .COMPLEX 02/01/22 [History Confirmed 02/01/22 Last Taken Unknown] loperamide 4 mg PO PRN PRN MDD 32 mg 02/01/22 [History Confirmed 02/01/22 Last Taken Unknown] olanzapine 10 mg tablet 1 tab PO HS 02/01/22 [History Confirmed 02/01/22 Last Taken Unknown] olanzapine 20 mg tablet 1 tab PO HS 02/01/22 [History Confirmed 02/01/22 Last Taken Unknown] paliperidone 3 mg tablet,extended release 24 hr 1 tab PO QAM 02/01/22 [History Confirmed 02/01/22 Last Taken Unknown] vit C,M-Rk-gmaagj-lutein-zeaxan 60 mg-13.5 mg-15 mg-2 mg-6 mg capsule (Healthy Eyes Lutein-Zeaxanthin) 1 cap PO BID 02/01/22 [History Confirmed 02/01/22 Last Taken Unknown] cefdinir 300 mg capsule 300 mg PO BID #5 cap 02/02/22 [Rx Last Taken Unknown] COURSE Hospital Course Hospital course: Interval history: History of present illness: Patient patient is poor historian most history obtained from chart Presented to the hospital with fever progressing mild productive cough mild shortness of breath and fever. And mild dyspnea. Occasional nausea. Patient has had vaccinations. Rapid Covid and flu were negative patient clinic presented like Covid so still is high suspicion versus bacterial pneumonia. 3/4 Patient feeling better today. Does have shortness of breath but that some proving. Able to cough of phlegm now. Oxygen weaned down to 4 L of cannula. Leukocytosis likely worsen from steroid. no Bandemia. 3/5 Feeling much better today. Patient on room air. States throat a little bit sore but otherwise no other complaints and patient actually wants to go home. 3/6 No oxygen requirement overnight. Patient doing well. Stable for discharge. A: *Acute hypoxic respiratory failure: 2/2 viral vs bacterial PNA *PNA: likely viral vs atypical bacterial +?acute on chronic bronchitis *SIRS: 2/2 above *Hypokalemia: *Schizophrenia: admissions in past for psychosis *DM: A1c 5.4 *Hypothyroidism: P: -Abx -short course steroids Discharge diagnosis: Pneumonia SIRS hypokalemia Secondary discharge diagnosis: History of any diabetes hypothyroidism Time Spent with Patient Time attestation: Total time spent providing and/or coordinating discharge services: Time spent: Greater than 30 minutes EXAM Constitutional Vitals: Temp Pulse Resp BP Pulse Ox 98.3 F 80 18 119/60 90 02/02/22 07:39 02/02/22 07:39 02/02/22 07:39 02/02/22 07:39 02/02/22 07:41 Discharge Data Data Completed and Pending Labs on day of discharge: Preliminary micro results at discharge 01/29/22 23:15 Blood Culture - Preliminary Blood 01/29/22 23:00 Blood Culture - Preliminary Blood Discharge Plan Patient/Caregiver Discharge Instructions Activity: increase activity as tolerated Diet: Consistent Carbohydrate Prescriptions: New cefdinir 300 mg capsule 300 mg PO BID Qty: 5 0RF Continued aspirin 81 mg Tablet,Chewable 81 mg PO DAILY 0RF montelukast [Singulair] 10 mg Tablet 10 mg PO QAM 0RF levothyroxine 88 mcg Capsule 88 mcg PO DAILY 0RF divalproex 250 mg tablet extended release 24 hr 1 tab PO QHS 0RF sertraline 50 mg tablet 1 tab PO QAM 0RF divalproex 500 mg Tablet Extended Release 24 Hr 500 mg PO QHS 0RF loperamide 2 mg capsule 4 mg PO PRN MDD 32 mg PRN (Reason: Diarrhea) 0RF ketoconazole 2 % shampoo See Rx Instructions .ROUTE .COMPLEX 0RF Rx Instructions: 1-3 times a week-avoid eyes fexofenadine [Allergy Relief (fexofenadine)] 180 mg tablet 180 tab PO HS 0RF olanzapine 10 mg tablet 1 tab PO HS 0RF olanzapine 20 mg tablet 1 tab PO HS 0RF paliperidone 3 mg tablet extended release 24 hr 1 tab PO QAM 0RF fenofibrate nanocrystallized 145 mg tablet 1 tab PO QDAY 0RF calcium carbonate-vitamin D3 600 mg-5 mcg (200 unit) Tablet 1 tab PO QHS 0RF Rx Instructions: Pt takes Calcium+D 600-400 mg/units Healthy Eyes Lutein-Zeaxanthin 60 mg-13.5 mg- 15 mg-2 mg-6 mg Capsule 1 cap PO BID 0RF Follow Up Plan Follow up with: Page Franco ARNP [Primary Care Provider] - Patient Disposition: Home, Self-Care Prognosis: Fair Overall status at discharge: patient is progressing back to baseline Discharge Orders: Discharge Order (Routine); Ordered 02/02/22 Ordered By: Cholo SAMSON VTE Deep Vein Thrombosis/Pulmonary Embolism Present on Admission: No
[2022-02-02] MEDS: cefTRIAXone 2 GM in DEXTROSE 5% IN WATER 50 ML IV SCH (09:42)
[2022-02-02] MEDS: LOPERAMIDE 2 MG CAPSULE PO PRN (11:49)
[2022-02-02] MEDS ORDERED: DIVALPROEX SODIUM 250 MG TABLET PO SCH (21:00)
[2022-02-04 21:56] LABS: M. Pneumoniae IGG 1.83
== END 2022-02-02 13:15 | disposition home or self-care (01) | DRG 193 ==
LOC: ED 22:24 → MEDSUR 01-30 04:07 → ICU 01-30 21:05 → MEDSUR 02-01 12:40
PROVIDERS: ADMIT Internal Medicine; ATTEND Internal Medicine